=== PATIENT | female | born 1985 | race Caucasian/White ===

== ENCOUNTER 2020-12-03 12:52 | Outpatient (CLI) | payer OTHER, SELFPAY | END 2020-12-03 12:53 | disposition home or self-care (01) | LOC: CHSLAB 12:57 | PROVIDERS: PCP Family Medicine; Visit Provider Specialist | DX: D22.5 Melanocytic nevi of trunk (principal) | CPT/HCPCS: 88305 ==

== ENCOUNTER 2021-04-22 13:13 | Outpatient (CLI) | payer OTHER, SELFPAY | END 2021-04-22 13:14 | disposition home or self-care (01) | LOC: CHSLAB 13:21 | PROVIDERS: PCP Family Medicine; Visit Provider Specialist | DX: D22.5 Melanocytic nevi of trunk (principal) | CPT/HCPCS: 88305 ==

== ENCOUNTER 2021-05-17 04:49 | Emergency (ER) | payer OTHER, SELFPAY ==
[2021-05-17] VITALS (11 sets, daily range): BP systolic 105–136; BP diastolic 60–79; PULSE 74–111; RESP 14–20; TEMP 36.5–36.8; O2SAT 95–100
--- NOTE | 2021-05-17 04:59 | PC.NURSE ---
Patient states she does have liquid stools.
[2021-05-17 05:13] LABS: Basophils Percent Auto 0.3 % (0.2-1.2); Hematocrit 43.6 % (37.0-47.0); Hemoglobin 14.4 g/dL (12.0-15.0); Immature Granulocyte Absolute 0.02 K/mm3 (0.00-0.031); Immature Granulocyte Percent A 0.3 % (0-0.5); Lymphocytes Absolute Auto 1.23 K/mm3 (0.9-3.2); Lymphocytes Percent Auto 16.6 % (18.3-44.2); Mean Corpuscular Hemoglobin 27.4 pg (26-34); Mean Corpuscular Volume 82.9 fl (80-100); Mean Platelet Volume 11.1 fl (7.4-10.4); Monocytes Absolute Auto 0.5 K/mm3 (0.1-0.6); Monocytes Percent Auto 6.9 % (2.6-8.5); Neutrophils Absolute Auto 5.6 K/mm3 (1.3-6.7); Neutrophils Percent Auto 75.9 % (45.5-73.1); Platelet Count Result 226 k/mm3 (150-375); Red Blood Count 5.26 M/mm3 (4.2-5.4); White Blood Count 7.4 K/mm3 (4.5-10.0)
[2021-05-17 05:34] LABS: Alanine Aminotransferase 28 U/L (4-35); Albumin Level 4.7 g/dL (3.5-5.1); Alkaline Phosphatase 67 U/L (38-126); Anion Gap 12 mmol/L (8-16); Aspartate Amino Transferase 30 U/L (14-36); Bilirubin,Total 0.6 mg/dL (0.2-1.3); Blood Urea Nitrogen 6 mg/dL (7-17); Carbon Dioxide 26 mmol/L (22-30); Chloride 97 mmol/L (98-107); Estimated Glomerular Filt Rate > 60; Glucose 137 mg/dL (65-110); Lipase 46 U/L (23-300); Potassium 3.8 mmol/L (3.4-5.0); Sodium 135 mmol/L (137-145)
[2021-05-17 05:48] LABS: Add Urine Microscopic? YES; Appearance Urine Clear (Clear); Bacteria Urine Trace /hpf; Bilirubin Urine Negative (Negative); Blood Urine 2+ (Negative); Color Urine Amber (Yellow); Glucose Urine UA Negative (Negative); Ketones Urine 1+ mg/dL (Negative); Leukocyte Esterase Ur Negative LEU/UL (Negative); Mucus Urine Few /lpf; Nitrate Urine Negative (Negative); Protein Urine 3+ mg/dL (Negative); Specific Grav Ur 1.019 (1.001-1.035); Squamous Epithelial Cell Urine Many /hpf (Few); Urobilinogen Urine Negative mg/dL (<2.0)
[2021-05-17] MEDS: LACTATED RINGERS 1,000 ML 999 ML IV CONT (06:05)
[2021-05-17] MEDS: ONDANSETRON INJ 4 MG/2 ML VIAL IV PUSH (06:05)
[2021-05-17] MEDS: SODIUM CHLORIDE 0.9% IV 1,000 ML 999 ML IV CONT (07:11)
[2021-05-17] MEDS: DICYCLOMINE HCL 10 MG CAPSULE 20 MG PO (07:11)
--- NOTE | 2021-05-17 07:15 | ED.NAVMDI ---
HPI - Nausea/Vomiting/Diarrhea General Chief complaint: Nausea/Vomiting/Diarrhea Stated complaint: N/V/D, abd pain Time Seen by Provider: 05/17/21 06:53 Source: patient History of Present Illness HPI Narrative: Patient returns with nausea vomiting diarrhea and sharp abdominal pain. Symptoms been present for the past few days and if not resolved so she wanted to come in for evaluation as she is having difficult time tolerating p.o. Her pain is intermittent radiates all over the abdomen there are no clear aggravating or alleviating symptoms. She had a scant amount of blood in her stool she denies melena or hematemesis. She has not had any known sick contacts, no recent antibiotics symptoms to start after eating some mushrooms from the grocery store. Denies any recent camping trips drinking from streams or travel outside the area Related Data Home Medications Medication Instructions Recorded Confirmed escitalopram oxalate mg 05/17/21 levonorgestrel-ethinyl estrad tablet 05/17/21 [Larissia] Allergies Allergy/AdvReac Type Severity Reaction Status Date / Time No Known Allergies Allergy Verified 05/17/21 04:58 Review of Systems Review of Systems: CONSTITUTIONAL: Denies fever, chills, or sweats. EYES: Denies visual changes, redness, or discharge. ENT: Denies rhinorrhea, congestion, sore throat, or otalgia. CARDIOVASCULAR: Denies chest pain, palpitations, or edema. RESPIRATORY: Denies cough or dyspnea. GASTROINTESTINAL: Reports abdominal pain nausea vomiting diarrhea GENITOURINARY: Denies dysuria or hematuria. SKIN: Denies rash or itching. MUSCULOSKELETAL: Denies back pain, joint pain, or myalgia. NEUROLOGIC: Denies headache, numbness, dizziness, or weakness. PSYCHIATRIC: Denies anxiety or depression. All systems reviewed & are unremarkable except as noted in HPI and below PMFSH Family History Family History Mother Hypertension Family history of alcoholism Father Patient's father is in good health Family history of alcoholism Sibling Carcinoma of colon, Onset Age: 45 Social History Social History Smoking status: Never smoker Alcohol intake: current Exam Narrative: GENERAL: Well-appearing, well-nourished, and in no acute distress. HEAD: Normocephalic, atraumatic. EYES: PERRLA and EOMI. ENT: Nares clear, no rhinorrhea or epistaxis. Mucous membranes moist. NECK: Supple. No masses. No JVD CHEST: Clear to auscultation. No respiratory distress. No wheezes rales or rhonchi HEART: Regular rate and rhythm. No murmur heard. Normal peripheral pulses. ABDOMEN: Minimal diffuse abdominal pain with deep palpation soft, nondistended EXTREMITIES: Normal range of motion. No edema. SKIN: Warm, dry, no rash. NEURO: No focal deficits. Alert and oriented x3. PSYCH: Normal mood and affect. Course Reevaluation(s) Reevaluation #1: Patient reported feeling much improved after fluids and Zofran. Results and plan reviewed with patient. Patient comfortable outpatient plan. Date: 05/17/21 Time: 07:09 Vital Signs Vital signs: Vital Signs Temperature 36.8 C 05/17/21 04:55 Pulse Rate 111 H 05/17/21 04:55 Respiratory Rate 20 05/17/21 04:55 Blood Pressure 136/69 05/17/21 04:55 Pulse Oximetry 96 05/17/21 04:55 Temperature 36.5 C 05/17/21 08:05 Pulse Rate 74 05/17/21 08:05 Respiratory Rate 14 05/17/21 08:05 Blood Pressure 105/60 05/17/21 08:05 Pulse Oximetry 98 05/17/21 08:05 MDM - Nausea/Vomiting/Diarrhea MDM Narrative Medical decision making narrative: H&P as above, vss, pt looks clinically well, exam with nonacute abdomen, labs clinically unremarkable, additional labs/img considered, symptomatic relief available as needed, on reevaluation pt continues to looks clinically well. Suspect viral process versus foodborne illness, dns severe sepsis, severe dehydration, append
--- NOTE | 2021-05-28 11:12 | PC.NURSE ---
LATE ENTRY This note is being entered to document information to the patient's record. The following information was omitted on [05/17/2021], by [Veronica Roberts RN]. NS stop time was 0800am.
== END 2021-05-17 08:07 | disposition home or self-care (01) ==
PROVIDERS: General Practice; Emergency Provider Emergency Medicine; PCP Family Medicine
DX: R11.2 Nausea with vomiting, unspecified (principal); R19.7 Diarrhea, unspecified; R10.84 Generalized abdominal pain
CPT/HCPCS: 36415; 80053; 81001; 81025; 83690; 85025; 87086; 87088; 96361; 96374; 99284; A9270; J2405; J7030; J7120

== ENCOUNTER 2023-08-06 00:50 | Day surgery (SDC) | payer OTHER, SELFPAY ==
[2023-07-12 10:01] VITALS: BMI 26.7
--- NOTE | 2023-08-04 09:29 | SUR.PREOP ---
Patient called regarding upcoming procedure. Reviewed preop instructions, appointment times, and procedure prep.
--- NOTE | 2023-08-05 18:11 | PM.HPGS ---
History of Present Illness History of Present Illness Consent: Risks, benefits, and alternatives have been discussed and questions answered. Patient agrees to proceed with procedure. Chief complaint: family hx colon ca Narrative: Yuko Vasques is a 37 year old female Referred for colon cancer screening. Her sister had colon cancer at age 43. Her last colonoscopy was 6 years ago. Review of Systems Review of Systems: All systems reviewed & are unremarkable except as noted in HPI and below PMFSH Family History Family History Mother Hypertension Family history of alcoholism Father Patient's father is in good health Family history of alcoholism Sibling Carcinoma of colon, Onset Age: 45 Social History Social History Smoking status: Never smoker Alcohol intake: current Drinks per week: 3 Substance use: never Substance use type: does not use Living arrangements: with family Spiritual care concerns: No Meds Home Medications and Allergies Home Medications Medication Instructions Recorded Confirmed Type drospirenone (contraceptive) 4 mg 4 mg PO DAILY 07/12/23 08/06/23 History (28) tablet (Slynd) Allergies Allergy/AdvReac Type Severity Reaction Status Date / Time No Known Allergies Allergy Verified 08/06/23 06:32 Exam Resp: Auscultation: clear to auscultation bilaterally Cardio: Rate: regular rate Rhythm: regular rhythm GI: GI Palp: Yes Soft to palpation and No Tenderness to palpation present (GI) Assessment and Plan Assessment and plan (1) Colon cancer screening: Code(s): Z12.11 - Encounter for screening for malignant neoplasm of colon Status: Acute Assessment and Plan: Colonoscopy with possible biopsy or polypectomy or cautery or injection of substances.
[2023-08-06 06:34] VITALS: BP 130/74; PULSE 84; RESP 16; TEMP 36.3; O2SAT 100
[2023-08-06] MEDS: LACTATED RINGERS 1,000 ML 150 ML IV CONT (06:36)
--- NOTE | 2023-08-06 08:04 | WPDANESEPPF ---
Anes - Initial Pre Proc Eval Procedure: Operation Date: 08/06/23 08:00 Proposed Procedures p Colonoscopy - Wilian Day MD Date/Time: 08/06/23 08:04 Surgeon: Wilian Day MD Pre Op Diagnosis: family hx colon ca Patient Data Age: 37 Gender: F Height: 1.65 m Weight: 73.3 kg Last Vital Signs Temp 97.4 F L 08/06/23 06:34 Pulse 84 08/06/23 06:34 Resp 16 08/06/23 06:34 BP 130/74 08/06/23 06:34 Pulse Ox 100 08/06/23 06:34 O2 Del Method Room Air 08/06/23 06:34 Allergies Allergy/AdvReac Type Severity Reaction Status Date / Time No Known Allergies Allergy Verified 08/06/23 06:32 Home Medications Medication Instructions Recorded Confirmed Type drospirenone (contraceptive) 4 mg 4 mg PO DAILY 07/12/23 08/06/23 History (28) tablet (Slynd) Patient hx anesthesia problems: none Family hx anesthesia problems: none Results Review: All pre-operative results and documents have been reviewed as part of the pre-operative evaluation. [facility] Family History Family History Mother Hypertension Family history of alcoholism Father Patient's father is in good health Family history of alcoholism Sibling Carcinoma of colon, Onset Age: 45 Social History Social History Smoking status: Never smoker Alcohol intake: current Drinks per week: 3 Substance use: never Substance use type: does not use Living arrangements: with family Spiritual care concerns: No Anes - Eval Final PreProcedure Day of Procedure 08/06/23 08:04 Patient weight: normal Heart: regular rate and rhythm Lungs: clear to auscultation Airway: Mallampati scale class II Neurological: alert and oriented Last oral intake: >/= 8 hours ASA classification: II Emergent: no Anesthetic plan: proceed Anesthesia type and monitoring: general GIVS and standard monitoring Results Review: All pre-operative results and documents have been reviewed as part of the pre-operative evaluation. Informed Consent: The patient's anesthetic plan and its attendant risks and benefits were discussed with the patient/family/POA. Questions were solicited and answers provided to the satisfaction of the patient/family/POA.
[2023-08-06] MEDS: SIMETHICONE ORAL SUSPENSION 20 MG/0.3 ML 30 ML BOTTLE 0.6 ML IRRIGATION (08:10)
[2023-08-06 08:19] VITALS: BP 102/54; PULSE 66; RESP 17; O2SAT 99
[2023-08-06 08:29] VITALS: BP 113/68; PULSE 64; RESP 16; O2SAT 100
[2023-08-06 08:39] VITALS: BP 132/60; PULSE 76; RESP 24; O2SAT 100
== END 2023-08-06 08:50 | disposition home or self-care (01) ==
PROVIDERS: Visit Provider Internal Medicine Gastroenterology
PROC: 0DJD8ZZ Inspection of Lower Intestinal Tract, Via Natural or Artificial Opening Endoscopic (ICD-10-PCS; CPT 45378; principal; 2023-08-06 08:00)
DX: Z12.11 Encounter for screening for malignant neoplasm of colon (principal); Z80.0 Family history of malignant neoplasm of digestive organs
CPT/HCPCS: 45378; J2001; J2704; J7120

== ENCOUNTER 2023-08-17 18:23 | Emergency (ER) | payer OTHER, SELFPAY ==
--- NOTE | 2023-08-17 18:26 | ED.EAR ---
HPI - Ear Problem General Chief complaint: Ear Stated complaint: Right Ear Pain/Swollen Gland Time Seen by Provider: 08/17/23 18:32 Source: patient and RN notes reviewed Mode of arrival: ambulatory Limitations: no limitations History of Present Illness HPI Narrative: 37-year-old female presents with concern for right ear pain and right swollen gland. She reports she had this about a month ago that resolved on its own. Reports she would have let this resolve on its own but she is going on vacation soon wanted to make sure she did have an ear infection. Denies sore throat, nasal congestion, rhinorrhea, fever, drainage from the ear MD Complaint: ear pain Related Data Home Medications Medication Instructions Recorded Confirmed drospirenone (contraceptive) 4 mg 4 mg PO DAILY 07/12/23 08/06/23 (28) tablet (Slynd) Allergies Allergy/AdvReac Type Severity Reaction Status Date / Time No Known Allergies Allergy Verified 08/06/23 06:32 Review of Systems Review of Systems: CONSTITUTIONAL: Denies malaise, chills, sweats, or fever. EYES: Denies visual changes, redness, or discharge. ENT: Denies rhinorrhea, congestion, sinus pain, and sore throat. Reports right ear pain CARDIOVASCULAR: Denies chest pain, palpitations, or edema. RESPIRATORY: Denies cough. Denies dyspnea. GASTROINTESTINAL: Denies abdominal pain, nausea, vomiting, diarrhea SKIN: Denies rash or itching. MUSCULOSKELETAL: Denies myalgia. NEUROLOGIC: Denies headache. All systems reviewed & are unremarkable except as noted in HPI and below PMFSH Family History Family History Mother Hypertension Family history of alcoholism Father Patient's father is in good health Family history of alcoholism Sibling Carcinoma of colon, Onset Age: 45 Social History Social History Smoking status: Never smoker Alcohol intake: current Drinks per week: 3 Substance use: never Substance use type: does not use Living arrangements: with family Spiritual care concerns: No Comments At time of signature, agree with nursing past medical, surgical, social and family history. There is no relevant family history pertinent to the presenting complaint Exam Narrative: GENERAL: Well-appearing, well-nourished, and in no acute distress. HEAD: Normocephalic EYES: PERRLA, conjunctivae clear ENT: Nares clear. Mucous membranes moist. TM pearly ramsey with sharp light reflex bilaterally; no tragal tenderness. Oropharynx not erythematous without lesions. Tonsils not enlarged and without exudate, no drooling, no hoarseness, no trismus, uvula midline. NECK: Supple. Right cervical lymphadenopathy CHEST: Clear to auscultation, breath sounds equal. No wheezing, rhonchi, rales, or stridor. No respiratory distress, speaks in full sentences. HEART: Regular rate and rhythm. No murmur heard. SKIN: Warm, dry, no rash. NEURO: Alert and oriented x3. PSYCH: Normal mood and affect Course Course Emergency Course: Patient is aware of diagnosis, understands and agrees to treatment plan. Anticipatory guidance given. Patient agrees to follow-up as directed and is aware of reasons to seek care at the emergency department. Portions of this record may have been created with voice recognition software Level of Care: Express Care Visit Vital Signs Vital signs: Reviewed. Medical Decision Making MDM Narrative Medical decision making narrative: Differential diagnosis considered: Castelan virus, strep pharyngitis, allergic rhinitis, upper respiratory tract infection, sinusitis, rhinosinusitis, nasopharyngitis. viral pharyngitis, otitis media, otitis externa, otitis effusion, cerumen impaction, foreign body. Exam findings show no acute concerns or changes; patient is non-toxic appearing and is in no distress. Patient is appropriate for outpatient treatment and follow-up. Critical Car
[2023-08-17 18:31] VITALS: BP 133/75; PULSE 81; RESP 16; TEMP 36.8; O2SAT 100
== END 2023-08-17 18:42 | disposition home or self-care (01) ==
PROVIDERS: Emergency Provider Nurse Practitioner
DX: H92.01 Otalgia, right ear (principal); I10 Essential (primary) hypertension
CPT/HCPCS: 99213; G0463

== ENCOUNTER → 2023-09-24 10:07 | Outpatient (CLI) | payer OTHER, SELFPAY ==
--- NOTE | ~2023-09-24 | MM_ITS ---
EXAMINATION: MM screening cayetano BI w elmer HISTORY: Screening TECHNIQUE: Craniocaudal and mediolateral oblique 3-D tomosynthesis images were obtained and synthetic 2-D images were generated. CAD analysis was submitted and interpreted. COMPARISON: No prior mammogram is available for comparison at this institution. BREAST PARENCHYMAL COMPOSITION: There are scattered areas of fibroglandular density. FINDINGS: There is focal asymmetry in the lateral aspect of the left breast on CC view. There are no suspicious masses, calcifications or architectural distortion in the right breast to suggest malignan cy. IMPRESSION: 1. Left breast asymmetry. 2. Additional mammographic views and possible breast ultrasound are recommended. BI-RADS Category 0: Incomplete: Needs additional imaging evaluation. Reviewed, dictated and finalized at location A. CTION CONTROL PREVENTIONIST IMPRESSION: 1. Left breast asymmetry. 2. Additional mammographic views and possible breast ultrasound are recommended . BI-RADS Category 0: Incomplete: Needs additional imaging evaluation.
== END ==
PROVIDERS: PCP Nurse Practitioner; Visit Provider Nurse Practitioner
DX: Z12.31 Encounter for screening mammogram for malignant neoplasm of breast (principal); R92.8 Other abnormal and inconclusive findings on diagnostic imaging of breast
CPT/HCPCS: 77063; 77067

== ENCOUNTER 2023-10-22 07:29 | Outpatient (CLI) | payer OTHER, SELFPAY ==
--- NOTE | ~2023-10-22 | MMUS_ITS ---
EXAMINATION: MM diagnostic cayetano LT w elmer, US breast LT limited HISTORY: Follow-up left breast asymmetries TECHNIQUE: Additional 3-D tomosynthesis images of the left breast were performed and synthetic 2-D im ages were generated. CAD analysis was submitted and interpreted. High resolution Limited left breast ultrasound was performed. COMPARISON: 09/24/2023 BREAST PARENCHYMAL COMPOSITION: Not dense: There are scattered areas of fibroglandular density. FINDINGS: MAMMOGRAPHIC FINDINGS: Asymmetry in the lateral aspect of the left breast is less apparent with spot compression views. No d iscrete mass or architectural distortion. No suspicious cluster of calcifications. ULTRASOUND: Limited left breast ultrasound: Normal heterogeneous echotexture without focal solid or cystic mass. IMPRESSION: 1. No evidence for malignancy in the left breast. 2. Routine yearly screening mammogram and regular clinical breast examination are recommended. BI-RADS Category 1: Negative Reviewed, dictated and finalized at location A. IMPRESSION: 1. No evidence for malignancy in the left breast. 2. Routine yearly screening mammogram and regular clinical breast examination a re recommended. BI-RADS Category 1: Negative
== END 2023-10-22 07:30 ==
LOC: MICIMG 07:30
PROVIDERS: PCP Nurse Practitioner; Visit Provider Nurse Practitioner
DX: N63.20 Unspecified lump in the left breast, unspecified quadrant (principal); R92.8 Other abnormal and inconclusive findings on diagnostic imaging of breast
CPT/HCPCS: 76642; 77061; 77065; G0279

== ENCOUNTER 2023-11-02 11:14 | Outpatient (CLI) | payer OTHER, SELFPAY | END 2023-11-02 11:15 | disposition home or self-care (01) | LOC: CHSLAB 11:20 | PROVIDERS: PCP Nurse Practitioner; Visit Provider Specialist | DX: D22.4 Melanocytic nevi of scalp and neck (principal) | CPT/HCPCS: 88305 ==

== ENCOUNTER 2024-01-17 01:13 | Day surgery (SDC) | payer OTHER, SELFPAY ==
[2024-01-04 10:27] VITALS: BMI 25.0
--- NOTE | 2024-01-04 10:47 | PC.NURSE ---
Report to the Outpatient Waiting Room, entrance under the green pavilion located off [facility], at 0730 on 01-17-24. Planned Procedure Time: 0930. Time changes happen often and if your time is changed the preop area will call you the afternoon before. - You and your visitor will be asked to self-screen and do not enter if you have any COVID symptoms. - A mask is optional within the hospital at this time. Patients may have clear liquids (water, carbonated beverages, clear teas, apple juice) until 3 hours prior to surgery with a maximum of 20 ounces. 0630 - No food from midnight until time of surgery - Infants may have breast milk until 4 hours before surgery, formula 6 hours prior to surgery. - Children will be allowed to drink immediately following surgery. If applicable, please bring a bottle or sippy cup to assist with drinking. Juice, water, soda, and popsicles are readily available. For infants on formula, please bring formula the day of surgery. Pacifiers are allowed. Take the following medications with a SIP of water the morning of surgery: control DO NOT STOP ANY OF YOUR OTHER PRESCRIPTION MEDICATIONS PRIOR TO SURGERY ?EXCEPT THE FOLLOWING Medications to discontinue per physician: vitamins and supplements Date to take last dose: 01-14-24 Please no make-up, nail latvian, hairspray, perfume, deodorant, or body powder the day of surgery. No jewelry (including any body piercings) or valuables the day of surgery, leave them at home. Please take a shower or bath the night before, or the morning of, surgery with an antibacterial soap. Wear comfortable, loose fitting clothing. Children are encouraged to wear pajamas. - Jewelry must be removed prior to entering the operating room. Rings and piercings that are not removed may be cut off. - The hospital will not accept responsibility for valuables. - Please leave all valuables, including medications, at home the day of surgery. If you are going home after surgery, a licensed customer service driver must drive you home. - NO public transportation without another adult if you receive anesthesia. - We recommend that an adult stay with you for 24 hours following discharge. - We also recommend that you do not drive, make important decision, drink alcoholic beverages, or take any drugs that were not prescribed by your health care provider for at least 24 hours after your discharge time. For Pediatric surgeries, we recommend two adults accompany the child home. Follow any additional instructions given to you from your surgeon. If you or anyone in your household have experienced Covid symptoms in the past week, please notify your surgeon or the nurse liaison at the phone number below for possible testing. Telephone instructions given to Yuko Vasques and asked if any additional questions and then verbalized understanding. Patient advised to call surgeon office or pre surgery nurse liaison [phone] if any additional questions.
--- NOTE | 2024-01-16 23:44 | PM.IMHP ---
H&P: HPI History of Present Illness Date/Time: 01/16/24 23:44 Chief Complaint: desires sterilization Narrative: Patient is a 38 year old female who presents for hysteroscopy, endometrial ablation and bilateral salpingectomy. Her menses have been well controlled on OCPs since age 13. She now desires permanent sterilization and surgical management of menstrual bleeding. R/b/a of the procedure have been discussed with patient and she desires to proceed with hysteroscopy, endometrial ablation and laparoscopic bilateral salpingectomy Review of Systems Review of Systems: All systems reviewed & are unremarkable except as noted in HPI and below PMFSH Family History Family History Mother Hypertension Family history of alcoholism Father Patient's father is in good health Family history of alcoholism Sibling Carcinoma of colon, Onset Age: 45 Social History Social History Smoking status: Never smoker Second hand tobacco smoke exposure: No Alcohol intake: current Drinks per week: 8 Alcohol use details: beer Substance use: never Substance use type: does not use Living arrangements: with family Spiritual care concerns: No Meds Home Medications and Allergies Home Medications Medication Instructions Recorded Confirmed Type drospirenone (contraceptive) 4 mg 4 mg PO DAILY 07/12/23 01/04/24 History (28) tablet (Slynd) [id number] 18 mg-FA 400 1 tablet PO DAILY 01/04/24 01/04/24 History mcg-calcium 500 mg-vit K 50 mcg tablet (Women's Multivitamin) Allergies Allergy/AdvReac Type Severity Reaction Status Date / Time No Known Allergies Allergy Verified 01/04/24 10:22 Exam Const: General: comfortable and no acute distress HENMT: Mouth: Yes moist mucous membranes Eyes: General: appearance normal, both eyes and all related structures Resp: Effort & Inspection: normal respiratory effort Skin: General skin exam: normal color Extrem: General: normal to inspection Psych: Mental Status: mental status grossly normal Assessment and Plan Assessment and plan (1) Encounter for sterilization: Code(s): Z30.2 - Encounter for sterilization Status: Acute Assessment and Plan: - on OCPs since age 13 - desires permanent sterilization and surgical management of menstrual bleeding - r/b/a of the procedure discussed, including permanence of sterilization procedure - patient voices understanding and desires to proceed with hysteroscopy, endometrial ablation and laparoscopic bilateral salpingectomy
[2024-01-17] VITALS (8 sets, daily range): BP systolic 96–143; BP diastolic 52–84; PULSE 58–77; RESP 14–20; TEMP 36.6; O2SAT 99–100; BMI 25.2
[2024-01-17] MEDS: ACETAMINOPHEN 500 MG TABLET 1000 MG PO (08:08)
[2024-01-17] MEDS: LACTATED RINGERS 1,000 ML 30 ML IV CONT ×2 (08:09→10:08)
--- NOTE | 2024-01-17 08:09 | WPDHPUPDATE1 ---
History and Physical Update Update Date/Time: 01/17/24 08:09 History and Physical has been reviewed, including an updated exam of the patient. There are NO changes in the patient's condition. Discussed procedure of hysteroscopy, dilation and curettage, endometrial ablation and laparoscopic bilateral salpingectomy. Risks, benefits, and alternatives have been discussed and questions answered. Patient agrees to proceed with procedure.
--- NOTE | 2024-01-17 08:45 | WPDANESEPPF ---
Anes - Initial Pre Proc Eval Procedure: Operation Date: 01/17/24 09:30 Proposed Procedures p Hysteroscopy with July Endometrial Ablation, Laparoscopic Bilateral Salpingectomy - Gilmar Hall MD Date/Time: 01/17/24 08:45 Surgeon: Gilmar Hall MD Pre Op Diagnosis: Vol Sterilization Patient Data Age: 38 Gender: F Height: 1.65 m Weight: 68.85 kg Last Vital Signs Temp 97.9 F 01/17/24 07:31 Pulse 74 01/17/24 07:31 Resp 16 01/17/24 07:31 BP 128/66 01/17/24 07:31 Pulse Ox 99 01/17/24 07:31 O2 Del Method Room Air 01/17/24 07:31 Allergies Allergy/AdvReac Type Severity Reaction Status Date / Time No Known Allergies Allergy Verified 01/17/24 08:12 Home Medications Medication Instructions Recorded Confirmed Type drospirenone (contraceptive) 4 mg 4 mg PO DAILY 07/12/23 01/04/24 History (28) tablet (Slynd) [id number] 18 mg-FA 400 1 tablet PO DAILY 01/04/24 01/17/24 History mcg-calcium 500 mg-vit K 50 mcg tablet (Women's Multivitamin) Patient hx anesthesia problems: none Family hx anesthesia problems: none Results Review: All pre-operative results and documents have been reviewed as part of the pre-operative evaluation. [facility] Family History Family History Mother Hypertension Family history of alcoholism Father Patient's father is in good health Family history of alcoholism Sibling Carcinoma of colon, Onset Age: 45 Social History Social History Smoking status: Never smoker Second hand tobacco smoke exposure: No Alcohol intake: current Drinks per week: 8 Alcohol use details: beer Substance use: never Substance use type: does not use Living arrangements: with family Spiritual care concerns: No Anes - Eval Final PreProcedure Day of Procedure 01/17/24 08:45 Patient weight: normal Heart: regular rate and rhythm Lungs: clear to auscultation Airway: Mallampati scale class II Neurological: alert and oriented Last oral intake: >/= 8 hours ASA classification: II Emergent: no Anesthetic plan: proceed Anesthesia type and monitoring: general ETT and standard monitoring Results Review: All pre-operative results and documents have been reviewed as part of the pre-operative evaluation. Pt active w walking neighborhood, no cp or sob. Informed Consent: The patient's anesthetic plan and its attendant risks and benefits were discussed with the patient/family/POA. Questions were solicited and answers provided to the satisfaction of the patient/family/POA.
--- NOTE | 2024-01-17 09:03 | P.OP_ITS ---
Procedure Note - Detailed Date of Procedure 01/17/24 Pre-op Diagnosis desires permanent sterilization Post-op Diagnosis Same Procedure Performed laparoscopic bilateral salpingectomy, hysteroscopy D&C, and aborted endometrial ablation Surgeon Gilmar Hall MD Anesthesia General Findings normal appearing uterus, ovaries and fallopian tubes laparoscopically. Normal appearing uterine cavity, no fibroids or polyps. Midline fundal perforation on attempted ablation, hemostatic at end of procedure. No evidence of injury to surrounding organs. Description of Procedure With IV fluids infusing, the patient was taken to the operating room. The patient was placed in supine position and SCDs were placed on the lower extremities. General anesthesia with endotracheal intubation was given. A time- out took place. The patient was placed in dorsal lithotomy position using Dale stirrups and she was prepped and draped in the usual sterile fashion. The bladder was drained of clear urine using a red rubber catheter. A sterile speculum was placed vaginally, the anterior lip of the cervix was grasped with a single-tooth tenaculum and the acorn uterine manipulator was placed without difficulty. The speculum was removed. The surgeon's gloves were changed and attention was turned to the abdomen. A 5 mm incision was made in Zelaya's point. Under direct visualization with the scope, the LUQ port was inserted without difficulty. Another two trocars were placed under direct visualization in the umbilicus and left lower quadrants. The patient was placed in Trendelenburg and inspection of the pelvis noted the above findings. Appropriate pictures were taken. Using the LigaSure devise, a left salpingectomy was performed in the usual fashion. Care was taken to avoid the IP ligament. The same procedure was performed on the right. The instruments were all removed from the abdomen and the CO2 gas was allowed to escape. A bivalved speculum was then inserted into the patient's vagina.?The acorn manipulator was removed. The uterus was sounded to 7 cm.? At this point, the? hysteroscope was then inserted into the uterine cavity. Saline was used as the distension medium. The above findings were noted. Both tubal ostia were visualized and pictures were taken.? The hysteroscope was then removed. A sharp curettage was performed and the specimen was sent to pathology. The cervix was further dilated to accommodate the July device. On entry with the dilator, loss of resistance was noted, concerning for uterine perforation. The hysteroscope and tenaculum were removed.? The anterior lip of the cervix was hemostatic, the bivalve speculum was then removed.? The laparoscope was then reintroduced to evaluate the suspected perforation, which was seen towards the right cornua however away from other structures. The ligasure device was used to ensure hemostasis. Intraabdominal pressure was decreased and hemostasis was confirmed. The instruments were removed from the abdomen and the CO2 gas was allowed to escape. The trocars were then removed from the abdomen. The three skin incisions were reapproximated with 4-0 Monocryl in a subcuticular manner, followed by skin glue. The patient tolerated the procedure well.? Sponge, lap, needle, and instrument counts were correct X3.? The patient was taken out of the dorsal lithotomy position and awakened from anesthesia and taken to the recovery room in stable condition. Pathology Yes Complications Other complications (midline uterine perforation, hemostatic) Condition Stable Disposition Same day
[2024-01-17] MEDS: LIDO 1%/EPINEPHRINE 1:100,000 20 ML VIAL INFILTRATE (09:32)
[2024-01-17] MEDS: oxyCODONE HCL (*CRX) 5 MG TAB IR PO (11:25)
--- NOTE | 2024-01-17 12:19 | SUR.PHASEII ---
Vital signs stable. IV removed. Patient getting dressed awaiting for Dr. Hall to speak to patient and family.
== END 2024-01-17 12:28 | disposition home or self-care (01) ==
PROVIDERS: Visit Provider Obstetrics & Gynecology
PROC: 0UDB8ZZ Extraction of Endometrium, Via Natural or Artificial Opening Endoscopic (ICD-10-PCS; CPT 58558; principal; 2024-01-17 09:30)
DX: Z30.2 Encounter for sterilization (principal); N99.71 Accidental puncture and laceration of a genitourinary system organ or structure during a genitourinary system procedure; N83.8 Other noninflammatory disorders of ovary, fallopian tube and broad ligament
CPT/HCPCS: 58661; 58563; 88302; 88305; A9270; J1100; J2250; J2405; J2704; J3010; J7120

== ENCOUNTER 2024-04-21 02:53 | Day surgery (SDC) | payer OTHER, SELFPAY ==
--- NOTE | 2024-04-10 16:13 | PC.NURSE ---
Report to the Outpatient Waiting Room, entrance under the green pavilion located off [facility], at time 0600 on date 04/21/24. Planned Procedure Time: 0730.? Time changes happen often and if your time is changed the preop area will call you the afternoon before. - You and your visitor will be asked to self-screen and do not enter if you have any COVID symptoms. Please call surgeon if you need to reschedule. - A mask is optional within the hospital at this time. Patients may have clear liquids (water, carbonated beverages, clear teas, apple juice) until 3 hours prior to surgery with a maximum of 20 ounces. 0430 - No food from midnight until time of surgery and no smoking - Infants may have breast milk until 4 hours before surgery, infant formula 6 hours prior to surgery. - Children will be allowed to drink immediately following surgery.? If applicable, please bring a bottle or sippy cup to assist with drinking. Juice, water, soda, and popsicles are readily available.? For infants on formula, please bring formula the day of surgery.? Pacifiers are allowed. Take only the following medications with a SIP of water on the morning of surgery: None DO NOT STOP ANY OF YOUR OTHER PRESCRIPTION MEDICATIONS PRIOR TO SURGERY EXCEPT THE FOLLOWING Medications to discontinue per physician Vitamins and supplements- hole for 3 days prior Date to take last dose: 04/18/24 Please no make-up, nail togolese, hairspray, perfume, deodorant, or body powder the day of surgery.? No jewelry (including any body piercings) or valuables the day of surgery, leave them at home.? Please take a shower or bath the night before, or the morning of, surgery with an antibacterial soap.? Wear comfortable, loose fitting clothing.? Children are encouraged to wear pajamas. - Jewelry must be removed prior to entering the operating room.? Rings and piercings that are not removed may be cut off. - The hospital will not accept responsibility for valuables.? - Please leave all valuables, including medications, at home the day of surgery. If you are going home after surgery, a licensed local truck driver must drive you home.? - NO public transportation without another adult if you receive anesthesia. - We recommend that an adult stay with you for 24 hours following discharge. - We also recommend that you do not drive, make important decision, drink alcoholic beverages, or take any drugs that were not prescribed by your health care provider for at least 24 hours after your discharge time. For Pediatric surgeries, we recommend two adults accompany the child home. Follow any additional instructions given to you from your surgeon. Telephone instructions given to Patient- Ykuo Vasques and asked if any additional questions and then verbalized understanding. Patient advised to call surgeon office or pre surgery nurse liaison [phone] if any additional questions.
[2024-04-10 16:26] VITALS: BMI 26.1
[2024-04-21 06:45] VITALS: BP 136/46; PULSE 74; RESP 14; TEMP 36.2; O2SAT 99
[2024-04-21] MEDS: ACETAMINOPHEN 500 MG TABLET 1000 MG PO (06:45)
[2024-04-21] MEDS: LACTATED RINGERS 1,000 ML 30 ML IV CONT (06:45)
--- NOTE | 2024-04-21 07:09 | PM.IMHP ---
H&P: HPI History of Present Illness Date/Time: 04/21/24 07:09 Chief Complaint: irregular bleeding Narrative: Patient is a 38 year old female who presents for hysteroscopy and endometrial ablation. She was previously in the hospital for an ablation and tubal ligation, however was complicated by uterine perforation at time of ablation, and only the tubal ligation was performed. She is now 3 months post op and would like to proceed with endometrial ablation. She denies dizziness or palpitations. Review of Systems Review of Systems: All systems reviewed & are unremarkable except as noted in HPI and below PMFSH Family History Family History Mother Hypertension Family history of alcoholism Father Patient's father is in good health Family history of alcoholism Sibling Carcinoma of colon, Onset Age: 45 Social History Social History Smoking status: Never smoker Second hand tobacco smoke exposure: No Alcohol intake: current Drinks per week: 6 Alcohol use details: beer Substance use: current Substance use type: marijuana Other substance usage details: Take nightly gummy Living arrangements: with family Spiritual care concerns: No Meds Home Medications and Allergies Home Medications Medication Instructions Recorded Confirmed Type sdrsgzkk-vng-liza 18 mg-FA 400 1 tablet PO DAILY 01/04/24 04/10/24 History mcg-calcium 500 mg-vit K 50 mcg tablet (Women's Multivitamin) Allergies Allergy/AdvReac Type Severity Reaction Status Date / Time No Known Allergies Allergy Verified 04/10/24 16:04 Exam Const: General: comfortable and no acute distress HENMT: Mouth: Yes moist mucous membranes Resp: Effort & Inspection: normal respiratory effort Cardio: Rate: regular rate Extrem: General: normal to inspection Psych: Mental Status: mental status grossly normal Assessment and Plan Assessment and plan (1) Abnormal uterine bleeding (AUB): Code(s): N93.9 - Abnormal uterine and vaginal bleeding, unspecified Status: Acute Assessment and Plan: - patient previously on oral control however had poor cycle control - endometrial sampling normal - discussed risks and benefits of medical vs surgical management with endometrial ablation - patient desires to proceed with hysteroscopy and endometrial ablation
--- NOTE | 2024-04-21 07:11 | WPDANESEPPF ---
Anes - Initial Pre Proc Eval Procedure: Operation Date: 04/21/24 07:30 Proposed Procedures p Hysteroscopy, July Endometrial Ablation - Gilmar Hall MD Date/Time: 04/21/24 07:11 Surgeon: Gilmar Hall MD Pre Op Diagnosis: Excessive and Freq Menstruation with Reg Cycle Patient Data Age: 38 Gender: F Height: 1.6 m Weight: 66.8 kg Allergies Allergy/AdvReac Type Severity Reaction Status Date / Time No Known Allergies Allergy Verified 04/10/24 16:04 Home Medications Medication Instructions Recorded Confirmed Type ymstmram-ole-tqsm 18 mg-FA 400 1 tablet PO DAILY 01/04/24 04/10/24 History mcg-calcium 500 mg-vit K 50 mcg tablet (Women's Multivitamin) Patient hx anesthesia problems: none Family hx anesthesia problems: none Results Review: All pre-operative results and documents have been reviewed as part of the pre-operative evaluation. [facility] Family History Family History Mother Hypertension Family history of alcoholism Father Patient's father is in good health Family history of alcoholism Sibling Carcinoma of colon, Onset Age: 45 Social History Social History Smoking status: Never smoker Second hand tobacco smoke exposure: No Alcohol intake: current Drinks per week: 6 Alcohol use details: beer Substance use: current Substance use type: marijuana Other substance usage details: Take nightly gummy Living arrangements: with family Spiritual care concerns: No Anes - Eval Final PreProcedure Day of Procedure 04/21/24 07:11 Patient weight: normal Heart: regular rate and rhythm Lungs: clear to auscultation Airway: Mallampati scale class 1 Neurological: alert and oriented Last oral intake: >/= 8 hours ASA classification: I Emergent: no Anesthetic plan: proceed Anesthesia type and monitoring: general GIVS and standard monitoring Results Review: All pre-operative results and documents have been reviewed as part of the pre-operative evaluation. Informed Consent: The patient's anesthetic plan and its attendant risks and benefits were discussed with the patient/family/POA. Questions were solicited and answers provided to the satisfaction of the patient/family/POA.
--- NOTE | 2024-04-21 07:13 | WPDHPUPDATE1 ---
History and Physical Update Update Date/Time: 04/21/24 07:13 History and Physical has been reviewed, including an updated exam of the patient. There are NO changes in the patient's condition. Risks, benefits, and alternatives have been discussed and questions answered. Patient agrees to proceed with procedure.
[2024-04-21 07:50] LABS: BEDSIDEPREGUCG Negative (Negative)
[2024-04-21] MEDS: LIDO 1%/EPINEPHRINE 1:100,000 50 ML VIAL 10 ML INFILTRATE (07:52)
[2024-04-21 08:05] VITALS: BP 104/43; PULSE 72; RESP 12
[2024-04-21 08:30] VITALS: BP 97/59; PULSE 76; RESP 20
--- NOTE | 2024-04-21 08:40 | P.OP_ITS ---
Procedure Note - Detailed Date of Procedure 04/21/24 Pre-op Diagnosis Excessive and Freq Menstruation with Reg Cycle Post-op Diagnosis Same Procedure Performed hysteroscopy and endometrial ablation Surgeon Gilmar Hall MD Anesthesia MAC and Local Findings normal appearing endometrial cavity and bilateral tubal ostia Description of Procedure With IV fluids infusing, the patient was taken to the operating room. The patient was placed in supine position and SCDs were placed on the lower extremities. General anesthesia with endotracheal intubation was given. A time- out took place. The patient was placed in dorsal lithotomy position using Dale stirrups and she was prepped and draped in the usual sterile fashion. A bivalved speculum was then inserted into the patient's vagina.?The uterus was sounded to 8 cm.? At this point, the hysteroscope was then inserted into the uterine cavity. Saline was used as the distension medium. The above findings were noted. Both tubal ostia were visualized and pictures were taken.? The hysteroscope was then removed. The cervical length was then measured using the dilator and measured 4 cm.? The cervix was further dilated to accommodate the July device. The July device was then opened and the uterine cavity length set at 4 cm.? The device was deployed, the mesh examined, and then reinserted into the sheath.? The device was then inserted into the uterine cavity, deployed, and cavity width measurement was appropriate.? The cavity assessment was performed and was within normal limits.? The device was then activated.? Once the ablation was completed the device was removed and the hysteroscope re inserted.? The burn was noted to be equal and adequate.? The hysteroscope and tenaculum were removed.? The anterior lip of the cervix was hemostatic, the bivalve speculum was then removed.? The three skin incisions were reapproximated with 4-0 Polysorb in a subcuticular manner, followed by skin glue. The patient tolerated the procedure well.? Sponge, lap, needle, and instrument counts were correct X3.? The patient was taken out of the dorsal lithotomy position and awakened from anesthesia and taken to the recovery room in stable condition. Estimated Blood Loss 10 Pathology Yes Complications No immediate complications Condition Stable Disposition Same day
[2024-04-21 08:45] VITALS: BP 102/70; PULSE 70; RESP 20
== END 2024-04-21 08:47 | disposition home or self-care (01) ==
PROVIDERS: Visit Provider Obstetrics & Gynecology
PROC: 0U5B8ZZ Destruction of Endometrium, Via Natural or Artificial Opening Endoscopic (ICD-10-PCS; CPT 58563; principal; 2024-04-21 07:30)
DX: N93.9 Abnormal uterine and vaginal bleeding, unspecified (principal); Z80.0 Family history of malignant neoplasm of digestive organs
CPT/HCPCS: 58563; A9270; J1100; J2250; J2405; J2704; J3010; J7120

== ENCOUNTER 2025-02-16 12:15 | Outpatient (CLI) | payer BC, SELFPAY ==
--- NOTE | ~2025-02-16 | MM_ITS ---
EXAMINATION: MM screening [place] BI w [facility] HISTORY: Screening TECHNIQUE: Craniocaudal and mediolateral oblique 3-D tomosynthesis images were obtained and synthetic 2-D images were generated. CAD analysis was submitted and interpreted. COMPARISON: Comparison to multiple prior studies sequentially, with oldest reviewed study dated 09/24. BREAST PARENCHYMAL COMPOSITION: Dense: The breasts are heterogeneously dense, which may obscure small masses FINDINGS: There is no evidence of suspicious mass, calcification, or architectural distortion to sugg est malignancy in either breast. There has been no suspicious interval change. IMPRESSION: 1. No mammographic evidence of malignancy. 2. Recommend routine screening mammography in one year. BI-RADS Category 1: Negative Reviewed, dictated and finalized at location B.
== END 2025-02-16 12:16 | disposition home or self-care (01) ==
PROVIDERS: PCP Obstetrics & Gynecology; Visit Provider Obstetrics & Gynecology
DX: Z12.31 Encounter for screening mammogram for malignant neoplasm of breast (principal)
CPT/HCPCS: 77063; 77067